=== PATIENT | female | born 1990 | race Caucasian/White ===

== ENCOUNTER 2021-10-18 14:45 | Inpatient (IN) | payer BC ==
[2021-10-18] MEDS ORDERED: Ondansetron 4 MG/2 ML SDV IVPUSH PRN (15:00)
[2021-10-18] MEDS ORDERED: Sodium Chloride 0.9% 20 ML SDV IV PRN (15:00)
[2021-10-18] MEDS ORDERED: Carboprost Tromethamine 250 MCG/1 ML Amp IM PRN (15:00)
[2021-10-18] MEDS ORDERED: Lactated Ringers 1,000 ML IV SCH (15:00)
[2021-10-18] MEDS ORDERED: Lidocaine 1% 50 ML MDV INJECT PRN (15:00)
[2021-10-18] MEDS ORDERED: Sodium Chloride 0.9% 2.5 ML Syringe FLUSH PRN (15:00)
[2021-10-18] MEDS ORDERED: Tranexamic Acid 1,000 MG in Sodium Chloride 0.9% 100 ML IV PRN ×2 (15:00→17:06)
[2021-10-18] MEDS ORDERED: Methylergonovine 0.2 MG/1 ML Amp IM PRN ×2 (15:00→17:06)
[2021-10-18] MEDS ORDERED: Oxytocin/0.9 % Sodium Chloride 30 UNIT/500 ML BAG IV SCH (15:00)
[2021-10-18] MEDS ORDERED: Sodium Chloride 0.9% 10 ML Syringe FLUSH PRN (15:00)
[2021-10-18] MEDS ORDERED: Misoprostol 200 MCG Tab PO PRN (15:00)
[2021-10-18] MEDS ORDERED: Water For Irrigation,Sterile 1,000 ML Container IRR PRN (15:00)
[2021-10-18] MEDS ORDERED: Acetaminophen 500 MG Tab PO PRN ×2 (17:06)
[2021-10-18] MEDS ORDERED: Docusate Sodium 100 MG Cap PO PRN (17:06)
[2021-10-18] MEDS ORDERED: Benzocaine/Menthol 20%-0.5% Spray 78 GM Cannister TOP PRN (17:06)
[2021-10-18] MEDS ORDERED: Ibuprofen 400 MG Tab PO PRN (17:06)
[2021-10-18] MEDS ORDERED: Lanolin 100% Cream 7 GM Tube TOP PRN (17:06)
[2021-10-18] MEDS ORDERED: Witch Hazel Medicated Pads 40/Jar TOP PRN (17:06)
[2021-10-18] MEDS ORDERED: Bisacodyl 10 MG Supp RECTAL PRN (17:06)
[2021-10-18] MEDS ORDERED: Ibuprofen 800 MG Tab PO PRN (17:06)
[2021-10-19 07:48] VITALS: BP 112/71; PULSE 60
[2021-10-19] MEDS ORDERED: Prenatal Multivitamin with Calcium/Folic Acid/Iron Tab PO SCH (09:00)
== END 2021-10-19 19:20 | disposition home or self-care (01) | DRG 560 ==
LOC: MW.OBCHECK 14:45 → MW.OB 14:54 → MW.OBCHECK 15:00 → OBSVTOIN 16:36 → MW.OB 20:30
PROVIDERS: ADMIT Obstetrics & Gynecology; ATTEND Obstetrics & Gynecology
PROC: 10E0XZZ Delivery of Products of Conception, External Approach (ICD-10-PCS; principal; 2021-10-18)
PROC: 0KQM0ZZ Repair Perineum Muscle, Open Approach (ICD-10-PCS; 2021-10-18)
PROC: 10907ZC Drainage of Amniotic Fluid, Therapeutic from Products of Conception, Via Natural or Artificial Opening (ICD-10-PCS; 2021-10-18)
DX: O70.1 Second degree perineal laceration during delivery (principal); Z37.0 Single live birth; Z3A.39 39 weeks gestation of pregnancy; Z20.822 Contact with and (suspected) exposure to COVID-19
CPT/HCPCS: 36415; 59025; 59409; 82803; 85014; 85018; 85027; 86592; 86850; 86900; 86901; A9270-GY; J2001; J2590; J7120; U0002